=== PATIENT | male | born 1960 | race Caucasian/White ===

== ENCOUNTER 2016-11-27 14:03 | Day surgery (SDC) | payer OTHER ==
[~2016-11-27] VITALS: Ht 170.2 cm; Wt 95.3 kg
[~2016-11-27 14:03] MED LIST: ANTIVERT 25MG25 MG PO; ASPIRIN 81M81 MG/TA2 PO; B COMPLEX1 TA2 PO; DHEA PO; MSM500 MG PO; PHENERGAN 25 TA25 MG PO
[2016-11-27 14:53] VITALS: BP 118/84; PULSE 62; TEMP 98.1
[2016-11-27] MEDS ORDERED: MOTRIN 200200 MG/TAB PO (15:03)
[2016-11-27] MEDS ORDERED: NATURAL MAGNES200 MG PO (15:05)
[2016-11-27 16:45] VITALS: BP 108/69; PULSE 52
[2016-11-27 17:00] VITALS: BP 108/69; PULSE 53
[2016-11-27 17:15] VITALS: BP 116/72; PULSE 55
== END 2016-11-27 17:28 | disposition home or self-care (01) ==
LOC: SDCO 14:03
DX: Z12.11 Encounter for screening for malignant neoplasm of colon (principal); D12.2 Benign neoplasm of ascending colon; K57.30 Diverticulosis of large intestine without perforation or abscess without bleeding; Z68.33 Body mass index [BMI] 33.0-33.9, adult; Z80.8 Family history of malignant neoplasm of other organs or systems; Z82.5 Family history of asthma and other chronic lower respiratory diseases; Z87.891 Personal history of nicotine dependence; Z82.0 Family history of epilepsy and other diseases of the nervous system
CPT/HCPCS: OP; J2250; J2405; J3010